=== PATIENT | female | born 1980 | race African-American/Black ===

== ENCOUNTER 2017-08-27 21:16 | Emergency (ER) | payer SELFPAY ==
[~2017-08-27] VITALS: Ht 172.7 cm; Wt 83.5 kg
[2017-08-27] MEDS ORDERED: NORVASC10 MG ORAL (21:37)
--- NOTE | 2017-08-27 21:43 | Emergency Room Report ---
History of Present Illness General Chief Complaint: Hypertension Source: Patient Present Illness HPI [id number] came for HTN. She states she ran out of metoprolol 25mg 2 days ago but hasnt been consistent in taking it. states shes previously taken lisinopril and norvasc too. Has had HTN "for a while" and family history of HTN too Denies chest pain, shortness of breath, headache, abdominal pain Doesnt have PMD - difficulty finding PMD. Allergies: Coded Allergies: No Known Allergies (Unverified , 08/27/17) Patient History Past Medical History: HTN Past Surgical History: none Pertinent Family History: HTN Social History: Denies: smoking, alcohol use, drug use Now: No Immunizations: UTD Reviewed Nursing Documentation: PMH: Agreed, PSxH: Agreed Nursing Documentation-PMH Past Medical History: No History, Except For Hx Hypertension: Yes Review of Systems All Other Systems: negative except mentioned in HPI Physical Exam Vital Signs Date Time Temp Pulse Resp B/P (MAP) Pulse Ox O2 Delivery O2 Flow Rate FiO2 08/27/17 21:22 99.1 92 20 202/129 99 Room Air 99.1 Sp02 EP Interpretation: reviewed, normal General Appearance: normal inspection, well appearing, no apparent distress, alert, GCS 15, non-toxic Head: normocephalic, atraumatic Eyes: bilateral eye PERRL, bilateral eye EOMI ENT: normal ENT inspection, hearing grossly normal, normal pharynx, no angioedema, normal voice, TMs + canals normal, uvula midline, moist mucus membranes Neck: normal inspection, full range of motion, supple, thyroid normal, no meningismus, no bony tend Respiratory: normal inspection, lungs clear, normal breath sounds, no rhonchi, no respiratory distress, no retraction, no accessory muscle use, no wheezing, speaking full sentences Cardiovascular #1: regular rate, rhythm, no edema, no JVD, normal capillary refill Gastrointestinal: normal inspection, normal bowel sounds, non tender, soft, no mass, no peritonitis, non-distended, no guarding, no hernia, no pulsatile mass Genitourinary: no CVA tenderness Musculoskeletal: normal inspection, back normal, normal range of motion, no calf tenderness, pelvis stable, Lisandra's Sign negative Neurologic: normal inspection, alert, oriented x3, responsive, adjunct business instructor III-XII nml as tested, motor strength/tone normal, cerebellar normal, normal gait, speech normal Psychiatric: normal inspection, judgement/insight normal, mood/affect normal, no suicidal/homicidal ideation, no delusions Skin: normal inspection, normal color, no rash Lymphatic: normal inspection, no adenopathy Medical Decision Making Diagnostic Impression: Primary Impression: Hypertension Qualified Codes: I10 - Essential (primary) hypertension ER Course VS with elevated BP Asymptomatic Poorly controlled BP d/t non-compliance I question the use of metoprolol in patient without CAD, heart disease I think Norvasc would be better option. She states she has taken norvasc 10mg previously, dose given here Rx Norvasc for 1 month Advised close PMD followup ER course: Patient has remained stable during ED stay. Disposition: Patient is to be discharged to home. Prescriptions given are norvasc Patient is instructed to follow up with their primary care doctor within 5 days. Strict return precautions discussed with patient such as fever, chills, worsening/severe pain, nausea, vomiting, which may indicate severe illness. Patient verbalizes understanding and agrees with plan. Please note that this Emergency Department Report was dictated using travelfoxduty engineer technology software, occasionally this can lead to erroneous entry secondary to interpretation by the dictation equipment Last Vital Signs Date Time Temp Pulse Resp B/P (MAP) Pulse Ox O2 Delivery O2 Flow Rate FiO2 08/27/17 21:22 99.1 92 20 202/129 99 Room Air 99.1 Status: improved Disposition: HOME, SELF-CARE Condition: Improved Scripts Amlodipine Besylate (Norvasc) 10 Mg Tablet 10 MG ORAL DAILY for 30 Days, #30 TAB 0 Refills Prov: ЮЛИЯ DE LEON M.D. 08/27/17 Patient Instructions: Managing Your High Blood Pressure ЮЛИЯ DE LEON M.D. Aug 27, 2017 21:43
[2017-08-27 21:53] VITALS: BP 202/129
[2017-08-27 21:57] VITALS: BP 187/110
[2017-08-27 21:58] VITALS: BP 187/110
== END 2017-08-27 21:58 | disposition home or self-care (01) ==
LOC: EMR 21:29
DX: I10 Essential (primary) hypertension (principal)
CPT/HCPCS: 99283

== ENCOUNTER 2018-03-15 15:31 | Emergency (ER) | payer BC ==
[~2018-03-15] VITALS: Ht 172.7 cm; Wt 90.7 kg
[~2018-03-15 15:31] MED LIST: NORVASC10 MG ORAL
[2018-03-15 16:01] VITALS: BP 180/113
--- NOTE | 2018-03-15 16:02 | Emergency Room Report ---
History of Present Illness General Chief Complaint: Pain Source: Patient Present Illness HPI 38-year-old female patient presents to ER complaining of left upper back pain since this morning. Reports that she has had similar symptoms the past, states that she thinks it is related to her potassium levels. States that she has a history of high blood pressure that she takes amlodipine 10 mg a day for. denies history of injury or trauma to back. Denies pain with urination or blood in urine. Denies fever, chest pain, shortness of breath, abdominal pain. Denies history of kidney stones. Denies history of LA. Requesting potassium levels be checked. Denies injury of trauma. Denies cough. Allergies: Coded Allergies: No Known Allergies (Unverified , 08/27/17) Patient History Past Medical History: see triage record Reviewed Nursing Documentation: PMH: Agreed; PSxH: Agreed Nursing Documentation-PMH Past Medical History: No History, Except For Hx Hypertension: Yes Review of Systems All Other Systems: negative except mentioned in HPI Physical Exam Vital Signs Date Time Temp Pulse Resp B/P (MAP) Pulse Ox O2 Delivery O2 Flow Rate FiO2 03/15/18 15:39 98.4 74 20 180/113 97 Room Air 98.4 Sp02 EP Interpretation: reviewed, normal General Appearance: well appearing, no apparent distress, alert, GCS 15, non- toxic Head: normocephalic, atraumatic Eyes: bilateral eye normal inspection, bilateral eye PERRL ENT: hearing grossly normal, normal pharynx, no angioedema, normal voice, uvula midline, moist mucus membranes Neck: full range of motion Respiratory: lungs clear, normal breath sounds, no rhonchi, no respiratory distress, no accessory muscle use, no wheezing, speaking full sentences Cardiovascular #1: regular rate, rhythm, no edema Gastrointestinal: non tender, soft, no mass, non-distended, no guarding, no rebound Genitourinary: no CVA tenderness Musculoskeletal: back normal, digits/nails normal, gait/station normal, normal range of motion, non-tender, no calf tenderness, Lisandra's Sign negative Neurologic: alert, oriented x3, responsive, motor strength/tone normal, sensory intact Psychiatric: mood/affect normal Skin: no rash Lymphatic: no adenopathy Medical Decision Making PA Attestation Dr. Contreras is my supervising Physician whom patient management has been discussed with. Diagnostic Impression: Primary Impression: Hypertension Additional Impression: Flank pain ER Course Pt. presents to the ED c/o left sided back pain. Ddx considered but are not limited to LA, arrhythmia, DVT, PE, penumonia, bronchitis, costochondritis, anxiety, kidney stones, aortic aneurysm. No calf swelling, negative Lisandra's sign, low suspicion for DVT pr PE per Well's criteria. Low suspicion for cardiac cause of pain. Will order labs to rule out. no history of injury or trauma, no spinous process tenderness or bony depression , does not require imaging of spine at this time. Patient resting comfortably, denies dysuria or hematuria, does not require imaging at this time, low suspicion for nephrolithiasis. On PE, chest is TTP; chest pain likely musculoskeletal in nature. Patient instructed to take NSAIDs as needed for pain symptoms. Vital signs: are WNL, pt. is afebrile Blood pressure mildly elevated at this time, will continue to monitor. Denies chest pain, shortness of breath, vision changes, does not require acute intervention at ER at this time. Follow with primary care provider discuss further treatment and referral. Advised on low-sodium diet, advised on diet and exercise. Ordered X-ray, labs, troponin, EKG and pain medication. ER COURSE Provided with Toradol and Robaxin in the ER. Labs shows no elevation in WBC or LFTs Troponin negative CXR negative for acute disease EKG shows no ST elevations or arrhythmias CBC shows no elevation in WBCs UA unremarkable, low suspicion for UTI, no RBCs or protein, low suspicion for nephrolithiasis, does not require imaging at this time, patient resting comfortably. CMP shows no elevation in LFTs, electrolytes within normal limits Troponin negative discuss results with patient. Etiology of pain likely muscular due to lack of UA findings consistent with underlying etiology. Advised on rest, ice and heat. F/u with PCP and discuss further referral at that time. Patient denies shortness of breath, EKG and chest x-ray unremarkable, troponin negative, low suspicion for LA or CHF. Asymptomatic hypertension does not require treatment at this time in the ER. Advised patient to follow-up with primary care provider to continue discuss blood pressure medication. informed patient of possible etiology of pain symptoms, ER precautions given. Followup with primary care provider, discuss referral to cardiology. patient smiling, in no acute distress, ambulating independently Without difficulty, nontoxic appearing, laughing. DISCHARGE: -Rx provided for Tylenol for pain symptoms. -RX provided for Robaxin, SE drowsiness, do not take prior to drinking, driving , operating heavy machinery. At this time pt. is stable for d/c to home. Patient is resting comfortably, in no acute distress, nontoxic appearing, talking without difficulty. Will provide printed patient care instructions, and any necessary prescriptions. Patient instructed to follow with primary care provider in 1-3 days. Followup with primary care provider for further pain medication rx. Followup with chemistry quality control analyst and eye doctor. Care plan and follow up instructions have been discussed with the patient prior to discharge. Take medications as directed. Patient questions asked and answered. Patient reports understanding and agreement to treatment plan. ER precautions given, patient instructed to return to ER immediately for any new or worsening of symptoms. - Please note that this Emergency Department Report was dictated using SEVEN Networksstatistical developer technology software, occasionally this can lead to erroneous entry secondary to interpretation by the dictation equipment. Labs Test 03/15/18 16:27 03/15/18 16:30 White Blood Count 8.3 K/UL (4.8-10.8) Red Blood Count 4.94 M/UL (4.20-5.40) Hemoglobin 13.5 G/DL (12.0-16.0) Hematocrit 42.3 % (37.0-47.0) Mean Corpuscular Volume 86 FL (80-99) Mean Corpuscular Hemoglobin 27.2 PG (27.0-31.0) Mean Corpuscular Hemoglobin Concent 31.8 G/DL (32.0-36.0) Red Cell Distribution Width 11.7 % (11.6-14.8) Platelet Count 208 K/UL (150-450) Mean Platelet Volume 8.2 FL (6.5-10.1) Neutrophils (%) (Auto) 64.2 % (45.0-75.0) Lymphocytes (%) (Auto) 25.8 % (20.0-45.0) Monocytes (%) (Auto) 5.3 % (1.0-10.0) Eosinophils (%) (Auto) 3.7 % (0.0-3.0) Basophils (%) (Auto) 1.0 % (0.0-2.0) Sodium Level 136 MMOL/L (136-145) Potassium Level 3.7 MMOL/L (3.5-5.1) Chloride Level 104 MMOL/L (98-107) Carbon Dioxide Level 27 MMOL/L (21-32) Anion Gap 5 mmol/L (5-15) Blood Urea Nitrogen 8 mg/dL (7-18) Creatinine 0.6 MG/DL (0.55-1.30) Estimat Glomerular Filtration Rate > 60 mL/min (>60) Glucose Level 80 MG/DL (74-106) Calcium Level 9.1 MG/DL (8.5-10.1) Total Bilirubin 0.4 MG/DL (0.2-1.0) Aspartate Amino Transf (AST/SGOT) 12 U/L (15-37) Alanine Aminotransferase (ALT/SGPT) 16 U/L (12-78) Alkaline Phosphatase 72 U/L (46-116) Total Creatine Kinase 122 U/L (26-308) Creatine Kinase MB 0.6 NG/ML (0.0-3.6) Creatine Kinase MB Relative Index 0.4 Troponin I 0.000 ng/mL (0.000-0.056) Total Protein 7.5 G/DL (6.4-8.2) Albumin 3.8 G/DL (3.4-5.0) Globulin 3.7 g/dL Albumin/Globulin Ratio 1.0 (1.0-2.7) Urine Color Pale yellow Urine Appearance Clear Urine pH 8 (4.5-8.0) Urine Specific [place] 1.010 (1.005-1.035) Urine Protein Negative (NEGATIVE) Urine Glucose (UA) Negative (NEGATIVE) Urine Ketones Negative (NEGATIVE) Urine Blood Negative (NEGATIVE) Urine Nitrite Negative (NEGATIVE) Urine Bilirubin Negative (NEGATIVE) Urine Urobilinogen Normal MG/DL (0.0-1.0) Urine Leukocyte Esterase 3+ (NEGATIVE) Urine RBC 0-2 /HPF (0 - 2) Urine WBC 2-4 /HPF (0 - 2) Urine Squamous Epithelial Cells Occasional /LPF Urine Bacteria Few /HPF (NONE) EKG Diagnostic Results Rate: normal Rhythm: NSR ST Segments: no acute changes ASA given to the pt in ED: No PA Scribe Text Parish Sommers PA-C Rhythm Strip Diag. Results EP Interpretation: yes Rate: 78 Rhythm: NSR, no PVC's, no ectopy TAVARES Scribe Text Parish Sommers PA-C Chest X-Ray Diagnostic Results Chest X-Ray Diagnostic Results : Chest X-Ray Ordered: Yes # of Views/Limited/Complete: 1 View Indication: Chest Pain EP Interpretation: Yes PA Xray: Interpretation reviewed, by supervising MD, and agrees with findings. Interpretation: no consolidation, no effusion, no pneumothorax, no acute cardiopulmonary disease Impression: No acute disease TAVARES Scribe Darshana Sommers PA-C Last Vital Signs Date Time Temp Pulse Resp B/P (MAP) Pulse Ox O2 Delivery O2 Flow Rate FiO2 03/15/18 15:39 98.4 74 20 180/113 97 Room Air 98.4 Disposition: HOME, SELF-CARE Condition: Stable Scripts Acetaminophen* (TYLENOL EXTRA STRENGTH*) 500 Mg Tablet 500 MG ORAL Q8H PRN for Prn Headache/Temp > 101, #30 TAB 0 Refills Prov: Vish Sommers 03/15/18 Methocarbamol* (ROBAXIN*) 500 Mg Tablet 500 MG PO TID, #21 TAB 0 Refills Prov: Vish Sommers 03/15/18 Patient Instructions: Back Pain, Adult, [id number], DASH Eating Plan, Flank Pain, [id number], Hypertension Additional Instructions: Patient instructed to follow up with primary care provider and discuss blood pressure medication and cardiac referral at that time as needed. Discuss further referral to orthopedics/physical therapy/pain management as needed. If unable to followup with PCP, followup with orthopedic urgent care in 5-7 days , call to schedule appointment. Patient instructed on rest, ice and heat. Take medications as directed. Patient questions asked and answered. ER precautions given, patient instructed to return to ER immediately for any new or worsening of symptoms. [facility] [address] [facility], [address] [email or web address] Vish Sommers Mar 15, 2018 16:02
[2018-03-15 16:40] LABS: APPEARANCE,URINE CLEAR; BILIRUBIN, URINE NEGATIVE (NEGATIVE); COLOR,URINE PALE YELLOW; GLUCOSE, URINE (UA) NEGATIVE (NEGATIVE); KETONES,URINE NEGATIVE (NEGATIVE); LEUKOCYTE ESTERASE ,URINE 3+ (NEGATIVE); NITRITE,URINE NEGATIVE (NEGATIVE); PH,URINE 8 (4.5-8.0); PROTEIN,URINE NEGATIVE (NEGATIVE); UROBILINOGEN,URINE NORMAL MG/DL (0.0-1.0)
[2018-03-15 16:44] LABS: EOSINOPHILS % (AUTO) 3.7 % (0.0-3.0); HEMATOCRIT 42.3 % (37.0-47.0); HEMOGLOBIN 13.5 G/DL (12.0-16.0); LYMPHOCYTES % (AUTO) 25.8 % (20.0-45.0); MEAN CORPUSCULAR VOLUME 86 FL (80-99); MONOCYTES % (AUTO) 5.3 % (1.0-10.0); NEUTROPHILS % (AUTO) 64.2 % (45.0-75.0); PLATELET COUNT 208 K/UL (150-450); RED BLOOD COUNT 4.94 M/UL (4.20-5.40); RED CELL DISTRIBUTION WIDTH 11.7 % (11.6-14.8); WHITE BLOOD COUNT 8.3 K/UL (4.8-10.8)
[2018-03-15] MEDS ORDERED: Ketorolac 30mg Inj IM ONE (16:45)
[2018-03-15] MEDS ORDERED: Methocarbamol 500mg tab ORAL ONE (16:45)
[2018-03-15 16:51] LABS: ANION GAP 5 mmol/L (5-15); BLOOD UREA NITROGEN 8 mg/dL (7-18); CALCIUM 9.1 MG/DL (8.5-10.1); CARBON DIOXIDE 27 MMOL/L (21-32); CHLORIDE 104 MMOL/L (98-107); CREATININE 0.6 MG/DL (0.55-1.30); POTASSIUM 3.7 MMOL/L (3.5-5.1); SODIUM 136 MMOL/L (136-145)
[2018-03-15 17:04] LABS: ALANINE AMINOTRANSFERASE 16 U/L (12-78); ALBUMIN 3.8 G/DL (3.4-5.0); ALKALINE PHOSPHATASE 72 U/L (46-116); ASPARTATE AMINO TRANSFERASE 12 U/L (15-37); BILIRUBIN,TOTAL 0.4 MG/DL (0.2-1.0); CKMB 0.6 NG/ML (0.0-3.6); CREATINE KINASE 122 U/L (26-308)
[2018-03-15] MEDS ORDERED: TYLENOL EXTRA500 MG ORAL (17:23)
[2018-03-15] MEDS ORDERED: ROBAXIN500 MG PO (17:23)
[2018-03-15 17:39] VITALS: BP 180/113
--- NOTE | 2018-03-16 08:18 | Diagnostic Imaging Report ---
Indication: Chest pain Technique: One view of the chest Comparison: none Findings: Lungs and pleural spaces are clear. Heart size is normal Impression: No acute process
== END 2018-03-15 17:41 | disposition home or self-care (01) ==
LOC: EMR 16:00
DX: I10 Essential (primary) hypertension (principal); R07.89 Other chest pain; R10.9 Unspecified abdominal pain; Z79.899 Other long term (current) drug therapy
CPT/HCPCS: 36415; 71045; 80053; 81003; 82550; 82553; 84484; 85025; 93005; 96372; 99284; J1885

== ENCOUNTER 2019-11-29 10:15 | Emergency (ER) | payer BC, OTHER ==
[~2019-11-29] VITALS: Ht 172.7 cm; Wt 95.3 kg
[~2019-11-29 10:15] MED LIST changes: +ROBAXIN500 MG PO; +TYLENOL EXTRA500 MG ORAL
[2019-11-29] MEDS ORDERED: LOSARTAN POTAS100 MG ORAL (10:30)
[2019-11-29 10:35] VITALS: BP 162/103
[2019-11-29] MEDS ORDERED: Losartan 25mg tab ORAL ONE (11:30)
[2019-11-29 11:33] LABS: BASOPHILS % (AUTO) 0.7 % (0.0-2.0); EOSINOPHILS % (AUTO) 3.1 % (0.0-3.0); HEMATOCRIT 39.5 % (37.0-47.0); MEAN CORPUSCULAR VOLUME 83 FL (80-99); MONOCYTES % (AUTO) 5.9 % (1.0-10.0); NEUTROPHILS % (AUTO) 64.3 % (45.0-75.0); PLATELET COUNT 231 K/UL (150-450); RED BLOOD COUNT 4.73 M/UL (4.20-5.40); RED CELL DISTRIBUTION WIDTH 11.9 % (11.6-14.8); WHITE BLOOD COUNT 8.1 K/UL (4.8-10.8)
[2019-11-29 11:58] LABS: ANION GAP 10 mmol/L (5-15); BLOOD UREA NITROGEN 7 mg/dL (7-18); CALCIUM 9.1 MG/DL (8.5-10.1); CARBON DIOXIDE 27 MMOL/L (21-32); CHLORIDE 105 MMOL/L (98-107); CREATININE 0.8 MG/DL (0.55-1.30); POTASSIUM 3.5 MMOL/L (3.5-5.1); SODIUM 142 MMOL/L (136-145)
[2019-11-29 12:03] LABS: ALANINE AMINOTRANSFERASE 29 U/L (12-78); ALBUMIN 3.9 G/DL (3.4-5.0); ALBUMIN/GLOBULIN RATIO 1.1 (1.0-2.7); ALKALINE PHOSPHATASE 58 U/L (46-116); ASPARTATE AMINO TRANSFERASE 20 U/L (15-37); BILIRUBIN,TOTAL 0.3 MG/DL (0.2-1.0)
[2019-11-29 12:23] VITALS: BP 161/99
--- NOTE | 2019-11-29 13:54 | Emergency Room Report ---
History of Present Illness General Chief Complaint: Hypertension Source: Patient Present Illness HPI This patient states that she has been out of her 2 blood pressure medications losartan and Norvasc for the past few days. She states she just has not had a chance to go flower buncher or picker a refill at the [facility]. She states that she presents today because she was feeling lightheaded and then when she went to check her blood pressure it kept elevating the more she checked it. She was seen at the fire department and her systolic blood pressure had gone over 200. She called her primary care doctor and was instructed to come here to the emergency department. She denies chest pain or shortness of breath. She denies headache or neck pain. She denies tingling or numbness. She denies weakness. She denies recent illness. She has no other complaints. Allergies: Coded Allergies: No Known Allergies (Unverified , 08/27/17) COVID-19 Screening Contact w/high risk pt: No Recent Travel to affected area: No Experienced COVID-19 symptoms?: No COVID-19 Testing performed [place] [employer]ER: No Patient History Past Medical History: see triage record, HTN Social History: Denies: smoking, alcohol use, drug use Last Menstrual Period: 11/04/19 Now: No Reviewed Nursing Documentation: PMH: Agreed; PSxH: Agreed Nursing Documentation-PMH Past Medical History: No History, Except For Hx Hypertension: Yes Review of Systems All Other Systems: negative except mentioned in HPI Physical Exam Vital Signs Date Time Temp Pulse Resp B/P (MAP) Pulse Ox O2 Delivery O2 Flow Rate FiO2 11/29/19 10:23 99.1 86 15 177/107 (130) 98 Room Air Sp02 EP Interpretation: reviewed, normal General Appearance: no apparent distress, alert, GCS 15, non-toxic Head: normocephalic, atraumatic Eyes: bilateral eye normal inspection, bilateral eye PERRL ENT: hearing grossly normal, normal pharynx, no angioedema, normal voice Neck: full range of motion, supple/symm/no masses Respiratory: chest non-tender, lungs clear, normal breath sounds, no respiratory distress, no retraction, no accessory muscle use, speaking full sentences Cardiovascular #1: regular rate, rhythm, no edema Gastrointestinal: normal inspection, normal bowel sounds, non-distended Rectal: deferred Musculoskeletal: back normal, normal range of motion, gait/station normal, non- tender Neurologic: alert, motor strength/tone normal, oriented x3, sensory intact, responsive, speech normal Psychiatric: judgement/insight normal, memory normal, mood/affect normal, no suicidal/homicidal ideation Skin: no rash, normal color Medical Decision Making Diagnostic Impression: Primary Impression: Hypertension ER Course This patient has known Hypertension. She was given her home blood pressure medications here in the emergency department. Her blood pressure was well controlled here in the emergency department and she was asymptomatic. Laboratory work-up was benign to include troponin and renal function. Please see the electronic medical record for lab findings. Patient states that she will go immediately to flower buncher or picker her refill of her blood pressure medications as soon as she is discharged here from the emergency department. Overall, the patient is well-appearing nontoxic without emergency medical condition. She is given close return precautions and follow-up instructions. Laboratory Tests Test 11/29/19 11:00 White Blood Count 8.1 K/UL (4.8-10.8) Red Blood Count 4.73 M/UL (4.20-5.40) Hemoglobin 13.0 G/DL (12.0-16.0) Hematocrit 39.5 % (37.0-47.0) Mean Corpuscular Volume 83 FL (80-99) Mean Corpuscular Hemoglobin 27.5 PG (27.0-31.0) Mean Corpuscular Hemoglobin Concent 32.9 G/DL (32.0-36.0) Red Cell Distribution Width 11.9 % (11.6-14.8) Platelet Count 231 K/UL (150-450) Mean Platelet Volume 7.1 FL (6.5-10.1) Neutrophils (%) (Auto) 64.3 % (45.0-75.0) Lymphocytes (%) (Auto) 26.0 % (20.0-45.0) Monocytes (%) (Auto) 5.9 % (1.0-10.0) Eosinophils (%) (Auto) 3.1 % (0.0-3.0) H Basophils (%) (Auto) 0.7 % (0.0-2.0) Urine HCG, Qualitative Negative (NEGATIVE) Sodium Level 142 MMOL/L (136-145) Potassium Level 3.5 MMOL/L (3.5-5.1) Chloride Level 105 MMOL/L (98-107) Carbon Dioxide Level 27 MMOL/L (21-32) Anion Gap 10 mmol/L (5-15) Blood Urea Nitrogen 7 mg/dL (7-18) Creatinine 0.8 MG/DL (0.55-1.30) Estimated Glomerular Filtration Rate > 60 mL/min (>60) Glucose Level 98 MG/DL (74-106) Calcium Level 9.1 MG/DL (8.5-10.1) Total Bilirubin 0.3 MG/DL (0.2-1.0) Aspartate Amino Transferase (AST) 20 U/L (15-37) Alanine Aminotransferase (ALT) 29 U/L (12-78) Alkaline Phosphatase 58 U/L (46-116) Troponin I 0.000 ng/mL (0.000-0.056) Total Protein 7.4 G/DL (6.4-8.2) Albumin 3.9 G/DL (3.4-5.0) Globulin 3.5 g/dL Albumin/Globulin Ratio 1.1 (1.0-2.7) Urine Opiates Screen Negative (NEGATIVE) Urine Barbiturates Screen Negative (NEGATIVE) Phencyclidine (PCP) Screen Negative (NEGATIVE) Urine Amphetamines Screen Negative (NEGATIVE) Urine Benzodiazepines Screen Negative (NEGATIVE) Urine Cocaine Screen Negative (NEGATIVE) Urine Marijuana (THC) Screen Negative (NEGATIVE) EKG Diagnostic Results Rate: normal Rhythm: NSR ST Segments: no acute changes Rhythm Strip Diag. Results EP Interpretation: yes Rate: 60's Rhythm: NSR, no PVC's, no ectopy Last Vital Signs Date Time Temp Pulse Resp B/P (MAP) Pulse Ox O2 Delivery O2 Flow Rate FiO2 11/29/19 12:23 98.7 84 15 161/99 98 Room Air Status: improved Disposition: HOME, SELF-CARE Condition: Improved Referrals: [facility] (PCP) Mayelin Jarrell DO Nov 29, 2019 13:54
[2019-11-29 14:30] VITALS: BP 154/89
== END 2019-11-29 14:30 | disposition home or self-care (01) ==
LOC: EMR 10:59
DX: I10 Essential (primary) hypertension (principal)
CPT/HCPCS: 36415; 80053; 80307; 81025; 84484; 85025; 93005; 99283